=== PATIENT | male | born 1990 | race Caucasian/White ===

== ENCOUNTER 2021-02-28 08:11 | Emergency (ER) | payer SELFPAY ==
[~2021-02-28] VITALS: Ht 170.2 cm; Wt 78.0 kg
[2021-02-28 09:45] VITALS: BP 127/73
== END 2021-02-28 09:51 | disposition home or self-care (01) ==
LOC: ER 08:32
DX: F10.129 Alcohol abuse with intoxication, unspecified (principal); Y90.9 Presence of alcohol in blood, level not specified
CPT/HCPCS: 99283